=== PATIENT | female | born 1985 | race Asian ===

== ENCOUNTER 2017-08-06 09:10 | Inpatient (IN) | payer SELFPAY ==
[~2017-08-06] VITALS: Ht 155 cm; Wt 66.7 kg
[2017-08-06] MEDS ORDERED: LR 1,000 ML IV SCH (10:12)
[2017-08-06] MEDS ORDERED: CEFAZOLIN 2 GM IVPB PREMIX 50 ML IV ONE (10:15)
[2017-08-06 10:35] LABS: BASOPHILS % (AUTO) 0.3 % (0.0-2.0); EOSINOPHILS # (AUTO) 0.1 K/uL (0.0-0.4); EOSINOPHILS % (AUTO) 0.7 % (0.0-4.0); LYMPHOCYTES # (AUTO) 1.7 K/uL (1.0-5.5); LYMPHOCYTES % (AUTO) 16.4 % (20.5-51.5); MEAN CORPUSCULAR HEMOGLOBIN 31 pg (27-31); MEAN CORPUSCULAR HGB CONC 33 % (32-36); MEAN CORPUSCULAR VOLUME 93 fL (79.0-98.0); MONOCYTES # (AUTO) 0.7 K/uL (0.0-1.0); MONOCYTES % (AUTO) 6.2 % (1.7-9.3); NEUTROPHILS # (AUTO) 8.1 K/uL (1.8-7.7); NEUTROPHILS % (AUTO) 76.4 % (40.0-70.0); PLATELET COUNT (AUTO) 184 K/uL (130-430); RED BLOOD CELL COUNT(AUTO) 4.21 MIL/uL (4.2-6.2); WHITE BLOOD COUNT (AUTO) 10.6 K/uL (4.8-10.8)
[2017-08-06] MEDS ORDERED: OXYTOCIN/NORMAL SALINE 1,000 ML IV ONE (13:57)
[2017-08-06] MEDS ORDERED: MEASLES,MUMPS&RUBELLA VACC/PF 12500 UNIT/0.5 ML VIAL SUBQ PRN (14:00)
[2017-08-06] MEDS ORDERED: HYDROcodone/ACETAMIN 5-325 MG TAB (NORCO/ VICODIN) PO PRN (14:00)
[2017-08-06] MEDS ORDERED: ANUSOL 1 EA SUPP.RECT (PREPARATION H) RC PRN (14:00)
[2017-08-06] MEDS ORDERED: LANOLIN 7 GM OINT. TP PRN (14:00)
[2017-08-06] MEDS ORDERED: DOCUSATE SODIUM 100 MG CAPSULE PO PRN (14:00)
[2017-08-06] MEDS ORDERED: OXYCODONE/ACETAMINOPHEN 5-325 TABLET PO PRN ×2 (14:00)
[2017-08-06] MEDS ORDERED: MEPERIDINE HCL/PF 25 MG/ML DISP.SYRIN IVP PRN (15:00)
[2017-08-06] MEDS ORDERED: ONDANSETRON HCL 4 MG/2 ML VIAL IVP PRN (15:00)
[2017-08-06] MEDS ORDERED: fentaNYL CITRATE/PF 100 MCG/2 ML AMP IVP PRN (15:00)
[2017-08-06] MEDS ORDERED: MIDAZOLAM HCL 5 MG/5 ML VIAL IVP PRN (15:00)
[2017-08-06] MEDS ORDERED: DIPHENHYDRAMINE INJ 50 MG/ML VIAL IVP PRN (15:00)
[2017-08-06] MEDS ORDERED: HYDROmorphone 1 MG INJ. 1 MG/ML AMPUL IVP PRN (15:00)
[2017-08-06] MEDS ORDERED: KETOROLAC TROMETHAMINE 30 MG VIAL IVP ONE (15:00)
[2017-08-06] MEDS ORDERED: NALOXONE HCL 0.4 MG/ML AMP (NARCAN) IVP PRN (15:00)
[2017-08-06] MEDS ORDERED: NALBUPHINE HCL 10 MG/ML AMP IVP PRN (15:00)
[2017-08-06] MEDS ORDERED: LR 1,000 ML IV ONE (15:00)
[2017-08-06] MEDS ORDERED: NALOXONE HCL 0.4 MG/ML AMP (NARCAN) IVP ONE (15:00)
[2017-08-06 17:03] VITALS: BP_SYST 112
[2017-08-06] MEDS ORDERED: CEFAZOLIN 1 GM IVPB PREMIX 50 ML IV SCH (18:00)
[2017-08-06] MEDS: CEFAZOLIN 1 GM IVPB PREMIX 50 ML IV SCH (18:20)
[2017-08-06] MEDS ORDERED: TEMAZEPAM 15 MG CAPSULE PO PRN (21:00)
[2017-08-07] MEDS: IBUPROFEN 600 MG TABLET PO SCH ×2 (06:15→18:10)
[2017-08-07] MEDS: CEFAZOLIN 1 GM IVPB PREMIX 50 ML IV SCH ×2 (06:15)
[2017-08-07 08:28] LABS: BASOPHILS % (AUTO) 0.3 % (0.0-2.0); EOSINOPHILS % (AUTO) 0.1 % (0.0-4.0); HEMATOCRIT 32.3 % (36-48); HEMOGLOBIN 10.7 g/dL (12.0-16.0); LYMPHOCYTES # (AUTO) 1.2 K/uL (1.0-5.5); MEAN CORPUSCULAR HEMOGLOBIN 31 pg (27-31); MEAN CORPUSCULAR HGB CONC 33 % (32-36); MEAN CORPUSCULAR VOLUME 92 fL (79.0-98.0); MONOCYTES # (AUTO) 0.8 K/uL (0.0-1.0); MONOCYTES % (AUTO) 5.6 % (1.7-9.3); NEUTROPHILS # (AUTO) 11.6 K/uL (1.8-7.7); PLATELET COUNT (AUTO) 175 K/uL (130-430); RED BLOOD CELL COUNT(AUTO) 3.52 MIL/uL (4.2-6.2); RED CELL DISTRIBUTION WIDTH 18.1 % (9.0-15.0); WHITE BLOOD COUNT (AUTO) 13.6 K/uL (4.8-10.8)
[2017-08-08] MEDS: SIMETHICONE 80 MG TAB.CHEW PO PRN ×2 (00:37→06:10)
[2017-08-08] MEDS: IBUPROFEN 600 MG TABLET PO SCH ×2 (00:37→06:09)
== END 2017-08-08 10:25 | disposition home or self-care (01) | DRG 766 ==
LOC: SNS 09:10 → EEVIPCON 09:10 → SPU 09:45
PROVIDERS: ADMIT Obstetrics & Gynecology; ATTEND Obstetrics & Gynecology
PROC: 0DNW0ZZ Release Peritoneum, Open Approach (ICD-10-PCS; 2017-08-06)
PROC: 10D00Z1 Extraction of Products of Conception, Low, Open Approach (ICD-10-PCS; principal; 2017-08-06 13:30)
DX: O34.211 Maternal care for low transverse scar from previous cesarean delivery (principal); N73.6 Female pelvic peritoneal adhesions (postinfective); Z37.0 Single live birth; O99.89 Other specified diseases and conditions complicating pregnancy, childbirth and the puerperium; Z3A.39 39 weeks gestation of pregnancy
CPT/HCPCS: 36415; 85025; 86886; 86900; 86901; 94760; J0690; J2590; J7120